=== PATIENT | male | born 1945 | race Caucasian/White ===

== ENCOUNTER 2018-05-27 17:12 | Inpatient (IN) | payer OTHER ==
[~2018-05-27] VITALS: Ht 177.8 cm; Wt 136.6 kg
[2018-05-27 17:57] LABS: BASOPHIL (%) 0.3 % (0-1); EOSINOPHIL (%) 0 % (0-5); HEMATOCRIT 45.6 % (38.0-50.0); HEMOGLOBIN 14.1 G/DL (12.5-16.6); IMMATURE GRANULOCYTE (%) 0.3 % (0.0-0.7); LYMPHOCYTE (%) 9.5 % (15-42); MCH 25.5 PG (29.0-34.0); MCHC 30.9 G/DL (30.0-36.0); MCV 82.5 FL (86-99); MONOCYTE (%) 6.9 % (3-12); MONOCYTE COUNT 0.7 K/uL (0-0.8); NEUTROPHIL COUNT 8.5 K/uL (1.8-6.4); PLATELET COUNT 209 K/uL (156-360); RBC DIS.WIDTH-CV 15.5 % (11.8-14.6); RBC DIS.WIDTH-SD 46.3 % (39-53); RED BLOOD COUNT 5.53 M/uL (4.00-5.50); WHITE BLOOD COUNT 10.3 K/uL (4.1-10.2)
[2018-05-27 18:05] LABS: INTER. NORMALIZED RATIO 1.2
[2018-05-27 18:08] LABS: CHLORIDE 103 mEq/L (99-109); PTT 26.5 SEC (25-37); SODIUM 139 mEq/L (136-147)
[2018-05-27 18:10] LABS: GLUCOSE 256 mg/dL (70-99)
[2018-05-27 18:14] LABS: CREATININE 1.3 mg/dL (0.6-1.3); GFR ESTIMATE (CALCULATED) 58 mL/min/ (58.99-99999)
[2018-05-27 18:15] LABS: UREA NITROGEN (BUN) 24 mg/dL (9-23)
[2018-05-27 18:22] LABS: TROP-I INTERPRETATION NEGATIVE; TROPONIN-I 0.02 ng/mL (0.0-0.30)
[2018-05-27] MEDS ORDERED: FUROSEMIDE40 MG PO (19:00)
[2018-05-27] MEDS ORDERED: PANTOPRAZOLE SO40 MG PO (19:00)
[2018-05-27] MEDS ORDERED: METFORMIN HCL500 M1 PO (19:00)
[2018-05-27] MEDS ORDERED: VERAPAMIL HCL360 MG PO (19:00)
[2018-05-27] MEDS ORDERED: LOSARTAN POTAS100 MG PO (19:00)
[2018-05-27] MEDS ORDERED: POTASSIUM CHLO10 ME4 PO (19:00)
[2018-05-27] MEDS ORDERED: ALLOPURINOL100 MG PO ×2 (19:00→19:10)
[2018-05-27] MEDS ORDERED: VENTOLIN HFA18 GM IH (19:01)
[2018-05-27] MEDS ORDERED: PREDNISONE20 MG PO (19:01)
[2018-05-27] MEDS ORDERED: FIBER0.4 GM PO (19:11)
[2018-05-27] MEDS ORDERED: VITAMIN D31000 UNIT PO (19:11)
[2018-05-27 21:00] VITALS: BP 159/92
[2018-05-27 22:00] VITALS: BP 153/88
[2018-05-27 23:00] VITALS: BP 149/83
[2018-05-27 23:06] LABS: TROP-I INTERPRETATION NEGATIVE; TROPONIN-I 0.02 ng/mL (0.0-0.30)
[2018-05-28] VITALS (24 sets, daily range): BP systolic 130–177; BP diastolic 67–107
[2018-05-28 02:12] LABS: INTER. NORMALIZED RATIO 1.3
[2018-05-28 02:15] LABS: PTT 58.4 SEC (25-37)
[2018-05-28 08:26] LABS: BASOPHIL (%) 0 % (0-1); EOSINOPHIL (%) 0 % (0-5); HEMATOCRIT 41.9 % (38.0-50.0); HEMOGLOBIN 12.9 G/DL (12.5-16.6); IMMATURE GRANULOCYTE (%) 0.6 % (0.0-0.7); LYMPHOCYTE (%) 8.7 % (15-42); LYMPHOCYTE COUNT 0.6 K/uL (1.0-2.8); MCH 25.5 PG (29.0-34.0); MCHC 30.8 G/DL (30.0-36.0); MONOCYTE (%) 5.7 % (3-12); MONOCYTE COUNT 0.4 K/uL (0-0.8); NEUTROPHIL COUNT 5.7 K/uL (1.8-6.4); PLATELET COUNT 167 K/uL (156-360); RBC DIS.WIDTH-CV 15.5 % (11.8-14.6); RBC DIS.WIDTH-SD 46.3 % (39-53); RED BLOOD COUNT 5.05 M/uL (4.00-5.50); WHITE BLOOD COUNT 6.7 K/uL (4.1-10.2)
[2018-05-28 08:36] LABS: INTER. NORMALIZED RATIO 1.2
[2018-05-28 08:38] LABS: PTT 59.3 SEC (25-37)
[2018-05-28 08:55] LABS: CHLORIDE 104 MEQ/L (99-109); MAGNESIUM 2.2 mg/dl (1.3-2.7); POTASSIUM 4.5 MEQ/L (3.7-5.4); SODIUM 140 MEQ/L (136-147)
[2018-05-28 09:01] LABS: CREATININE 0.8 MG/DL (0.6-1.3); GFR ESTIMATE (CALCULATED) > 59 mL/min/ (58.99-99999); GLUCOSE 173 mg/dL (70-99); PHOSPHORUS 5.1 mg/dL (2.5-4.9); UREA NITROGEN (BUN) 21 mg/dL (9-23)
[2018-05-29] VITALS (14 sets, daily range): BP systolic 126–157; BP diastolic 63–83
[2018-05-29 06:29] LABS: BASOPHIL (%) 0.4 % (0-1); EOSINOPHIL (%) 0.2 % (0-5); HEMOGLOBIN 13.2 G/DL (12.5-16.6); IMMATURE GRANULOCYTE (%) 0.5 % (0.0-0.7); LYMPHOCYTE (%) 20.3 % (15-42); LYMPHOCYTE COUNT 1.7 K/uL (1.0-2.8); MCH 25.2 PG (29.0-34.0); MONOCYTE (%) 11.4 % (3-12); NEUTROPHIL (%) 67.2 % (45-76); NEUTROPHIL COUNT 5.7 K/uL (1.8-6.4); PLATELET COUNT 178 K/uL (156-360); RBC DIS.WIDTH-CV 15.2 % (11.8-14.6); RBC DIS.WIDTH-SD 45.7 % (39-53); RED BLOOD COUNT 5.24 M/uL (4.00-5.50); WHITE BLOOD COUNT 8.5 K/uL (4.1-10.2)
[2018-05-29 09:29] LABS: CHLORIDE 100 MEQ/L (99-109); GFR ESTIMATE (CALCULATED) > 59 mL/min/ (58.99-99999); GLUCOSE 143 mg/dL (70-99); MAGNESIUM 2.3 mg/dl (1.3-2.7); PHOSPHORUS 4.6 mg/dL (2.5-4.9); SODIUM 139 MEQ/L (136-147); UREA NITROGEN (BUN) 25 mg/dL (9-23)
[2018-05-29 12:23] LABS: INTER. NORMALIZED RATIO 1.2
[2018-05-29 12:25] LABS: PTT 80.7 SEC (25-37)
[2018-05-30 03:20] VITALS: BP 139/85
[2018-05-30 06:33] LABS: BASOPHIL (%) 0.6 % (0-1); EOSINOPHIL (%) 2.2 % (0-5); EOSINOPHIL COUNT 0.1 K/uL (0-0.3); HEMATOCRIT 44.3 % (38.0-50.0); HEMOGLOBIN 13.3 G/DL (12.5-16.6); IMMATURE GRANULOCYTE (%) 0.5 % (0.0-0.7); LYMPHOCYTE COUNT 1.4 K/uL (1.0-2.8); MCV 83.4 FL (86-99); MONOCYTE (%) 9.3 % (3-12); MONOCYTE COUNT 0.6 K/uL (0-0.8); NEUTROPHIL (%) 66.4 % (45-76); NEUTROPHIL COUNT 4.3 K/uL (1.8-6.4); PLATELET COUNT 174 K/uL (156-360); RBC DIS.WIDTH-SD 45.7 % (39-53); RED BLOOD COUNT 5.31 M/uL (4.00-5.50); WHITE BLOOD COUNT 6.4 K/uL (4.1-10.2)
[2018-05-30 07:01] LABS: CHLORIDE 100 MEQ/L (99-109); CREATININE 0.9 MG/DL (0.6-1.3); GFR ESTIMATE (CALCULATED) > 59 mL/min/ (58.99-99999); GLUCOSE 129 mg/dL (70-99); PHOSPHORUS 4.3 mg/dL (2.5-4.9); POTASSIUM 3.8 MEQ/L (3.7-5.4); SODIUM 139 MEQ/L (136-147); UREA NITROGEN (BUN) 21 mg/dL (9-23)
[2018-05-30 07:50] VITALS: BP 136/65
[2018-05-30 11:11] VITALS: BP 163/71
[2018-05-30 16:31] VITALS: BP 116/66
[2018-05-31 00:30] VITALS: BP 158/72
[2018-05-31 06:09] VITALS: BP 149/70
[2018-05-31 06:19] LABS: BASOPHIL (%) 0.3 % (0-1); EOSINOPHIL COUNT 0.2 K/uL (0-0.3); HEMATOCRIT 42.4 % (38.0-50.0); IMMATURE GRANULOCYTE (%) 0.5 % (0.0-0.7); LYMPHOCYTE (%) 17.8 % (15-42); LYMPHOCYTE COUNT 1.2 K/uL (1.0-2.8); MCH 25.4 PG (29.0-34.0); MCHC 30.7 G/DL (30.0-36.0); MCV 82.8 FL (86-99); MONOCYTE (%) 10.2 % (3-12); MONOCYTE COUNT 0.7 K/uL (0-0.8); NEUTROPHIL (%) 68.2 % (45-76); NEUTROPHIL COUNT 4.5 K/uL (1.8-6.4); PLATELET COUNT 152 K/uL (156-360); RBC DIS.WIDTH-CV 14.9 % (11.8-14.6); RBC DIS.WIDTH-SD 44.9 % (39-53); RED BLOOD COUNT 5.12 M/uL (4.00-5.50); WHITE BLOOD COUNT 6.6 K/uL (4.1-10.2)
[2018-05-31 06:44] LABS: CHLORIDE 99 MEQ/L (99-109); CREATININE 0.8 MG/DL (0.6-1.3); GFR ESTIMATE (CALCULATED) > 59 mL/min/ (58.99-99999); GLUCOSE 142 mg/dL (70-99); PHOSPHORUS 3.9 mg/dL (2.5-4.9); POTASSIUM 3.6 MEQ/L (3.7-5.4); SODIUM 139 MEQ/L (136-147); UREA NITROGEN (BUN) 16 mg/dL (9-23)
[2018-05-31 07:48] VITALS: BP 128/60
[2018-05-31 09:37] LABS: INTER. NORMALIZED RATIO 1.2
[2018-05-31 11:31] VITALS: BP 127/61
[2018-05-31 16:06] VITALS: BP 13/67; BP 133/67
[2018-05-31 19:56] VITALS: BP 170/74
[2018-06-01 00:19] VITALS: BP 152/67
[2018-06-01 04:07] VITALS: BP 156/69
[2018-06-01 05:56] LABS: INTER. NORMALIZED RATIO 1.3
[2018-06-01 06:05] LABS: BASOPHIL (%) 0.4 % (0-1); EOSINOPHIL (%) 4.2 % (0-5); EOSINOPHIL COUNT 0.3 K/uL (0-0.3); HEMATOCRIT 42.2 % (38.0-50.0); IMMATURE GRANULOCYTE (%) 1.1 % (0.0-0.7); LYMPHOCYTE (%) 17.3 % (15-42); LYMPHOCYTE COUNT 1.2 K/uL (1.0-2.8); MCH 25.5 PG (29.0-34.0); MCHC 30.8 G/DL (30.0-36.0); MCV 82.7 FL (86-99); MONOCYTE (%) 10.5 % (3-12); MONOCYTE COUNT 0.7 K/uL (0-0.8); NEUTROPHIL (%) 66.5 % (45-76); NEUTROPHIL COUNT 4.7 K/uL (1.8-6.4); PLATELET COUNT 177 K/uL (156-360); RBC DIS.WIDTH-SD 45.3 % (39-53); WHITE BLOOD COUNT 7.1 K/uL (4.1-10.2)
[2018-06-01 06:18] LABS: CHLORIDE 99 MEQ/L (99-109); CREATININE 0.8 MG/DL (0.6-1.3); GFR ESTIMATE (CALCULATED) > 59 mL/min/ (58.99-99999); GLUCOSE 137 mg/dL (70-99); PHOSPHORUS 3.6 mg/dL (2.5-4.9); POTASSIUM 3.8 MEQ/L (3.7-5.4); SODIUM 139 MEQ/L (136-147); UREA NITROGEN (BUN) 14 mg/dL (9-23)
[2018-06-01 08:32] VITALS: BP 156/70
[2018-06-01] MEDS ORDERED: DUONEB 2.5-0.5 M3 ML AEROSOL (10:49)
[2018-06-01] MEDS ORDERED: SPIRIVA18 MCG IH (10:51)
[2018-06-01] MEDS ORDERED: LOVENOX100 MG/1 M SC (10:54)
[2018-06-01] MEDS ORDERED: LOVENOX40 MG/0.4 SC (10:54)
[2018-06-01] MEDS ORDERED: COZAAR50 MG PO (10:54)
[2018-06-01 12:15] VITALS: BP 135/63
[2018-06-01] MEDS ORDERED: COUMADIN5 MG PO (14:05)
== END 2018-06-01 16:35 | disposition home or self-care (01) | DRG 175 ==
LOC: EME 17:12 → 4WEST 20:13 → EDOF 20:13 → 2EAST 20:13 → ENRESERV 20:14 → 4WEST 20:45 → ENRESERV 05-29 13:15 → 4WEST 05-29 14:33 → 2EAST 05-29 15:53
PROVIDERS: Emergency Medicine; Hospitalist
DX: I26.99 Other pulmonary embolism without acute cor pulmonale (principal); J96.01 Acute respiratory failure with hypoxia; I27.20 Pulmonary hypertension, unspecified; Z99.81 Dependence on supplemental oxygen; G47.33 Obstructive sleep apnea (adult) (pediatric); J44.9 Chronic obstructive pulmonary disease, unspecified; E11.9 Type 2 diabetes mellitus without complications; I10 Essential (primary) hypertension; E66.01 Morbid (severe) obesity due to excess calories; Z68.41 Body mass index [BMI] 40.0-44.9, adult; K21.9 Gastro-esophageal reflux disease without esophagitis; Z87.891 Personal history of nicotine dependence; L21.9 Seborrheic dermatitis, unspecified; M10.9 Gout, unspecified
CPT/HCPCS: 71045; 71275; 80048; 82948; 83036; 83605; 83735; 83880; 84100; 84484; 85025; 85379; 85610; 85730; 87040; 87641; 93005; 93306; 93970; 94640; 94760; 94799; 99281; 99285; J1650; J1815; J2930